=== PATIENT | male | born 1985 | race Caucasian/White ===

== ENCOUNTER 2016-06-30 08:43 | Emergency (ER) | payer MEDICAID ==
[2016-06-30 08:49] VITALS: O2SAT 96
--- NOTE | 2016-06-30 08:57 | EDPHY ---
H & P Time Seen by Provider: 06/30/16 08:51 HPI/ROS: CHIEF COMPLAINT: Right-sided pain HISTORY OF PRESENT ILLNESS: Patient is a history of end-stage liver disease and has been sober from alcohol for more than the last 6 months. 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 Today he was waiting for the bus. He noted that his right-sided abdominal pain has been escalating over the past few days. He said that he coughed and suddenly felt like "something popped" and pain started increasing to a 10/10 severity. It is located under his ribcage on the right side. Does not radiate. Not associated with vomiting or diarrhea. REVIEW OF SYSTEMS: Eye: no change in vision ENT: no sore throat Cardiac: no chest pain or syncope Pulmonary: HPI Abdomen: HPI Musculoskeletal: no back pain Skin: no rash Neuro: no headache Constitutional: no fever : no urinary symptoms A comprehensive 10 point review of systems is otherwise negative aside from elements mentioned in the history of present illness. PAST MEDICAL HISTORY: History of cirrhosis and end-stage liver disease. Discharge summary dated 12/24/2015 personally reviewed. Includes gallbladder drain during previous admission. Social history: Tobacco smoker, sober since November 17 last year General Appearance: Alert and conversant, cooperative. Eyes: No scleral icterus. ENT, Mouth: Normal mucous membranes. Respiratory: Splinting with breathing. Cardiovascular: Regular rate and rhythm. Gastrointestinal: Abdomen is soft and non tender. No Kee sign. Neurological: Alert and oriented x3. Normally conversant. Face symmetric, normal movement and sensation in all extremities. Skin: Warm and dry, no rashes. Musculoskeletal: No peripheral edema and no joint swelling. Psychiatric: Tearful. Emergency Department course/MDM: Dilaudid 1 mg IV. Chest x-ray and labs to include liver function tests and lipase. 1030: Results discussed, patient playing a video game on his phone, I had to interrupt him to discuss his results. Likely chest wall or musculoskeletal pain from coughing. Patient had some nausea assisted by Zofran IV. Patient requested a refill of his Dilaudid prescription which I declined. Is referred back to his primary care for that. Smoking Status: Current every day smoker Constitutional: Initial Vital Signs Temperature (C) 36.5 C 06/30/16 08:46 Heart Rate 90 06/30/16 08:46 Respiratory Rate 20 06/30/16 08:46 Blood Pressure 134/60 H 06/30/16 08:46 O2 Sat (%) 96 06/30/16 08:46 O2 Delivery Mode Room Air Allergies/Adverse Reactions: peanut Allergy (Severe, Verified 06/30/16 08:45) venom-honey bee [bee venom (honey bee)] Allergy (Severe, Verified 06/30/16 08:45 ) acetaminophen Allergy (Verified 06/30/16 08:45) RASH, ITCHY aspirin Allergy (Verified 06/30/16 08:45) naproxen Allergy (Verified 06/30/16 08:45) mustard Allergy (Unknown, Uncoded 03/28/14 00:51) Home Medications: Medication Instructions Recorded NK [No Known Home Meds] 06/30/16 Medical Decision Making - Diagnostics Imaging Results: Imaging Impressions Chest X-Ray 06/30/16 09:03 Impression: No acute pulmonary disease. Differential Diagnosis: Differential considered including but not limited to pneumothorax, intestinal perforation, cholecystitis, hepatitis, pulmonary embolism. - Data Points Laboratory Results: Laboratory Results 06/30/16 09:00 06/30/16 09:00 06/30/16 06/30/16 09:00 09:00 WBC 4.83 10^3/uL 10^3/uL (3.80-9.50) RBC 4.55 10^6/uL 10^6/uL (4.40-6.38) Hgb 14.3 g/dL g/dL (13.7-17.5) Hct 41.7 % % (40.0-51.0) MCV 91.6 fL fL (81.5-99.8) MCH 31.4 pg pg (27.9-34.1) MCHC 34.3 g/dL g/dL (32.4-36.7) RDW 12.9 % % (11.5-15.2) Plt Count 139 10^3/uL L 10^3/uL (150-400) MPV 10.6 fL fL (8.7-11.7) Neut % (Auto) 37.9 % L % (39.3-74.2) Lymph % (Auto) 46.6 % H % (15.0-45.0) [place] % (Auto) 11.6 % % (4.5-13.0) Eos % (Auto) 2.5 % % (0.6-7.6) Baso % (Auto) 1.4 % % (0.3-1.7) Nucleat RBC Rel Count 0.0 % % (0.0-0.2) Absolute Neuts (auto) 1.83 10^3/uL 10^3/uL (1.70-6.50) Absolute Lymphs (auto) 2.25 10^3/uL 10^3/uL (1.00-3.00) Absolute Monos (auto) 0.56 10^3/uL 10^3/uL (0.30-0.80) Absolute Eos (auto) 0.12 10^3/uL 10^3/uL (0.03-0.40) Absolute Basos (auto) 0.07 10^3/uL 10^3/uL (0.02-0.10) Absolute Nucleated RBC 0.00 10^3/uL 10^3/uL (0-0.01) Immature Gran % 0.0 % % (0.0-1.1) Immature Gran # 0.00 10^3/uL 10^3/uL (0.00-0.10) Sodium 142 mEq/L mEq/L (134-144) Potassium 3.8 mEq/L mEq/L (3.5-5.2) Chloride 103 mEq/L mEq/L (97-110) Carbon Dioxide 26 mEq/l mEq/l (22-31) Anion Gap 13 mEq/L mEq/L (8-16) BUN 10 mg/dL mg/dL (7-23) Creatinine 0.8 mg/dL mg/dL (0.7-1.3) Estimated GFR > 60 Glucose 90 mg/dL mg/dL (70-100) Calcium 10.0 mg/dL mg/dL (8.5-10.4) Total Bilirubin 1.2 mg/dL mg/dL (0.1-1.4) Conjugated Bilirubin 0.5 mg/dL mg/dL (0.0-0.5) Unconjugated Bilirubin 0.7 mg/dL mg/dL (0.0-1.1) AST 50 IU/L IU/L (17-59) ALT 48 IU/L IU/L (21-72) Alkaline Phosphatase 117 IU/L IU/L (38-126) Total Protein 8.5 g/dL H g/dL (6.3-8.2) Albumin 5.0 g/dL g/dL (3.5-5.0) Lipase 61.0 IU/L IU/L (23-300) Medications Given: Discontinued Medications Hydromorphone HCl (Dilaudid) 1 mg IVP EDNOW ONE Stop: 06/30/16 09:04 Last Admin: 06/30/16 09:05 Dose: 1 mg Hydromorphone HCl (Dilaudid) 1 mg IVP EDNOW ONE Stop: 06/30/16 09:37 Last Admin: 06/30/16 09:49 Dose: 1 mg Ondansetron HCl (Zofran) 4 mg IVP EDNOW ONE Stop: 06/30/16 10:41 Last Admin: 06/30/16 10:45 Dose: Not Given Ondansetron HCl (Zofran) 4 mg IVP EDNOW ONE Stop: 06/30/16 10:42 Last Admin: 06/30/16 10:45 Dose: 4 mg Departure - Departure Disposition: Home, Routine, Self-Care Clinical Impression: Right-sided chest pain Condition: Good Instructions: Chest Wall Pain (ED) Referrals: Luanne Farmer PAC [Primary Care Provider] - As per Instructions
[2016-06-30] MEDS ORDERED: HYDROmorphONE/DILAUDID 1 MG/ML SYR IVP ONE ×2 (09:03→09:36)
[2016-06-30 09:10] LABS: ADD DIFF? NO; ADD MORPH? NO; ADD SCAN? NO; ATYPICAL LYMPHOCYTE FLAG 50 (0-99); FRAGMENT RBC FLAG 0 (0-99); HEMATOCRIT 41.7 % (40.0-51.0); HEMOGLOBIN 14.3 g/dL (13.7-17.5); LEFT SHIFT FLG 0 (0-99); LIPEMIA HEMOLYSIS FLAG 90 (0-99); MEAN CELL HEMOGLOBIN 31.4 pg (27.9-34.1); MEAN CELL HEMOGLOBIN CONCENTR. 34.3 g/dL (32.4-36.7); MEAN CELL VOLUME 91.6 fL (81.5-99.8); MEAN PLATELET VOLUME 10.6 fL (8.7-11.7); PLATELET CLUMPS FLAG 0 (0-99); PLATELET COUNT 139 10^3/uL (150-400); RED BLOOD CELL COUNT 4.55 10^6/uL (4.40-6.38); RED CELL DISTRIBUTION WIDTH 12.9 % (11.5-15.2)
[2016-06-30 09:29] LABS: ALANINE AMINOTRANSFERASE 48 IU/L (21-72); ALKALINE PHOSPHATASE 117 IU/L (38-126); ANION GAP 13 mEq/L (8-16); ASPARTATE AMINOTRANSFERASE 50 IU/L (17-59); BILIRUBIN,TOTAL 1.2 mg/dL (0.1-1.4); BILIRUBIN-CONJUGATED 0.5 mg/dL (0.0-0.5); BILIRUBIN-UNCONJUGATED 0.7 mg/dL (0.0-1.1); CARBON DIOXIDE 26 mEq/l (22-31); CHLORIDE 103 mEq/L (97-110); CREATININE 0.8 mg/dL (0.7-1.3); GLOMERULAR FILTRATION RATE > 60; GLUCOSE 90 mg/dL (70-100); POTASSIUM 3.8 mEq/L (3.5-5.2); SODIUM 142 mEq/L (134-144); TOTAL PROTEIN 8.5 g/dL (6.3-8.2)
[2016-06-30 10:40] VITALS: BP 108/69; PULSE 78; RESP 18; TEMP 98.2
[2016-06-30] MEDS ORDERED: ONDANSETRON 4 MG/2 ML VIAL IVP ONE ×2 (10:40→10:41)
== END 2016-06-30 11:28 | disposition home or self-care (01) ==
DX: R07.9 Chest pain, unspecified (principal); F17.200 Nicotine dependence, unspecified, uncomplicated; Z91.010 Allergy to peanuts
CPT/HCPCS: 96374; J1170; J2405

== ENCOUNTER 2016-07-29 05:51 | Day surgery (SDC) | payer MEDICAID ==
[2016-07-29] MEDS ORDERED: LR 1,000 ML IV ONE (06:26)
[2016-07-29] MEDS ORDERED: LIDOCAINE 1% 5 ML SDV ID PRN (06:26)
[2016-07-29] MEDS ORDERED: PROPOFOL/EMULSION 500 MG/50 ML BOTTLE IV ONE ×2 (07:13→07:39)
[2016-07-29] MEDS ORDERED: fentaNYL 100 MCG/2 ML INJ ONE (07:13)
[2016-07-29] MEDS ORDERED: LIDOCAINE 2% 100 MG/5 ML SYR ONE (07:14)
[2016-07-29] MEDS ORDERED: MIDAZOLAM 2 MG/2 ML VIAL ONE (07:15)
--- NOTE | 2016-07-29 08:03 | GPN ---
[f rep st] PROCEDURE NOTE DATE OF PROCEDURE: 07/29/2016 PROCEDURE: Esophagogastroduodenoscopy with biopsy. INDICATION: The patient is a 31-year-old male, who presents for evaluation of right and left upper quadrant abdominal pain as well as screening for esophageal varices. He presents for further evaluation. CONSENT: Risks, benefits, and alternatives of the procedure discussed in great detail with the patient. Risk of infection, bleeding, perforation, and sedation were discussed. All questions answered. Informed consent obtained. MEDICATIONS: Propofol. Please see Anesthesia record for details. ESTIMATED BLOOD LOSS: Insignificant. ESOPHAGOGASTRODUODENOSCOPY EXAMINATION: The Olympus upper endoscope was introduced into the mouth and advanced to the esophagus. The proximal, mid, and distal esophagus were normal in appearance. No esophageal varices noted. The stomach was entered and closely examined, including retroflexed views of angularis, cardia, and fundus. The patient was noted to have a moderate-sized hiatal hernia. Several small diminutive polyps were seen along the greater curvature and biopsies were taken. The mucosa of the antrum and body was erythematous in a patchy distribution and biopsies were taken. The duodenal bulb and second portion of duodenum normal in appearance. IMPRESSION: 1. No esophageal varices visualized. 2. Gastritis, status post biopsy. 3. Gastric polyp, status post biopsy. 4. Hiatal hernia. 5. No obvious cause of pain. Will await biopsy results. The pain may be to be musculoskeletal in origin? RECOMMENDATIONS: 1. Proceed with colonoscopy. 2. Await biopsy results. /[id number]/MODL MTDD
--- NOTE | 2016-07-29 08:32 | GPN ---
[f rep st] PROCEDURE NOTE DATE OF PROCEDURE: 07/29/2016 PROCEDURE: Colonoscopy. INDICATION: The patient is a 31-year-old male who presents for evaluation of hematochezia. CONSENT: Risks, benefits, and alternatives of the procedure were discussed in great detail with the patient. Risks of infection, bleeding, perforation, and sedation were discussed. MEDICATIONS: Propofol. Please see Anesthesia record for details. ESTIMATED BLOOD LOSS: None. COLONOSCOPIC EVALUATION: A rectal exam was performed and internal hemorrhoids were appreciated. The Olympus adult colonoscope was introduced into the rectum and advanced to the cecum where the ileocecal valve and appendiceal orifice were seen. The terminal ileum was intubated and was normal in appearance. The colonic mucosa was carefully examined upon both insertion and withdrawal of the scope. No masses or polyps were seen. Retroflexion was performed and large internal hemorrhoids were. IMPRESSION: 1. Internal hemorrhoids. 2. Normal terminal ilium. 3. No mass or polyp seen. 4. Suspect the cause of his symptoms are hemorrhoidal in nature. RECOMMENDATIONS: 1. Fiber supplementation. 2. No straining during bowel movements. /[id number]/MODL MTDD
== END 2016-07-29 09:00 | disposition home or self-care (01) ==
LOC: FSGY 05:51
PROVIDERS: ATTEND Internal Medicine Gastroenterology
PROC: 0DJD8ZZ Inspection of Lower Intestinal Tract, Via Natural or Artificial Opening Endoscopic (ICD-10-PCS; principal; 2016-07-29 07:15)
PROC: 0DB68ZX Excision of Stomach, Via Natural or Artificial Opening Endoscopic, Diagnostic (ICD-10-PCS; principal; 2016-07-29 07:15)
DX: K64.8 Other hemorrhoids (principal); K44.9 Diaphragmatic hernia without obstruction or gangrene; K31.7 Polyp of stomach and duodenum; K29.70 Gastritis, unspecified, without bleeding
CPT/HCPCS: J2001; J2250; J2704; J3010

== ENCOUNTER 2016-08-19 18:41 | Emergency (ER) | payer MEDICAID ==
[2016-08-19 18:48] VITALS: TEMP 98.2
--- NOTE | 2016-08-19 18:58 | EDPHY ---
H & P Stated Complaint: l sided abd pain HPI/ROS: HPI CHIEF COMPLAINT: Left-sided abdominal pain HISTORY OF PRESENT ILLNESS: This patient very pleasant 31-year-old male significant past medical history for alcohol abuse, daily alcohol use, currently clean for 9 months, liver cirrhosis, alcohol-induced hepatitis, gastritis, recently had endoscopy colonoscopy by Dr. Jones on 07/29. Diagnosis gastritis. Presents emergency room with 24 hours of left upper quadrant abdominal pain with associated nausea. Few episodes of vomiting. Nonbilious nonbloody. No black tarry stools. No diarrhea. No fever. No chest pain or shortness of breath. Denies abdominal trauma. States the pain is 10/10 left upper quadrant sharp stabbing. Nonradiating. Patient tells me initially has chronic abdominal pain takes 10 mg of Dilaudid per day. However he is not taking any Dilaudid recently. Past Medical History: Alcohol-induced gastritis, alcohol-induced hepatitis, alcohol abuse, alcohol-induced cirrhosis, chronic abdominal pain. Past Surgical History: Denies recent surgery Social History: Denies use of alcohol, clean x9 months, smokes tobacco daily marijuana daily. Family History: Noncontributory ROS REVIEW OF SYSTEMS: A comprehensive 10 point review of systems is otherwise negative aside from elements mentioned in the history of present illness. Exam Constitutional appears well nontoxic, triage nursing summary reviewed, vital signs reviewed, awake/alert. Eyes normal conjunctivae and sclera, EOMI, PERRLA. HENT normal inspection, atraumatic, moist mucus membranes, no epistaxis, neck supple/ no meningismus, no raccoon eyes. Respiratory clear to auscultation bilaterally, normal breath sounds, no respiratory distress, no wheezing. Cardiovascular rate normal, regular rhythm, no murmur, no edema, distal pulses normal. Gastrointestinal mild tender palpation left upper quadrant , no guarding, normal bowel sounds, no distension, no pulsatile mass. Genitourinary no CVA tenderness. Musculoskeletal no midline vertebral tenderness, full range of motion, no calf swelling, no tenderness of extremities, no meningismus, good pulses, neurovascularly intact. Skin pink, warm, & dry, no rash, skin atraumatic. Neurologic awake, alert and oriented x 3, AAOx3, moves all 4 extremities equally, motor intact, sensory intact, CN II-XII intact, normal cerebellar, normal vision, normal speech. Psychiatric normal mood/affect. Heme/Lymph/Immune no lymphadenopathy. Differential diagnosis includes but is not limited to and in no particular order :, gastritis, peptic ulcer disease Bowel obstruction, appendicitis, gallbladder disease, diverticulitis, colitis, enteritis, perforated viscus, gastritis, GERD, esophagitis, urinary tract infection, pyelonephritis, kidney stones Medical Decision Making: Plan for this patient IV establishment, IV blood work including abdominal labs, CT abdomen pelvis with IV contrast for acute abdominal pain, check urinalysis. Hydration with IV fluids, IV Protonix GI cocktail. Re-evaluate. Re-evaluation: 1957: Re-examination at this time patient is resting comfortably no acute distress. Abdomen soft nontender. No vomiting. He is going to CT at this time. Received IV fluids IV Protonix and GI cocktail. His blood work has been reviewed and is reassuring. Vital signs are reassuring. CT scan of the abdomen pelvis with IV contrast. The results of the study are this shows no acute inflammatory process. The liver was compared to his old CT and has had shrunken and size, esophageal varices present. Otherwise no acute inflammatory process no free air and free fluid. Bowel loops normal. Nothing to explain left upper quadrant abdominal pain.. The study was read by Dr. June. I viewed the images myself on the PACS system. 2030: I did review this patient's blood work and CT scan with the patient. On re-examination is abdomen is soft nontender. He is not vomiting here. He has normal vital signs. Normal blood work normal CT scan. I explained most likely this is inflammation in the stomach lining as previously seen on his EGD I do recommend he follows up with Gastroenterology. He does understand return emergency room if develops worsening abdominal pain fever vomiting. His CT scan here is reassuring no acute inflammatory process blood work is normal. His vital signs are stable. I do recommend he take Zantac. Refrain from taking ibuprofen he has been taking this recently. It is noted while standing outside the room he was comp, cooperative, resting comfortably in speaking coherently with his significant other in the room. Upon my entry he started screaming in pain and writhing in pain. Once he calmed down I did re- evaluate his abdomen is soft nontender. I do feel comfortable allowing to go home. He has not any vomiting here he has stable vital signs stable blood work stable CT scan. Source: Patient - Personal History Current Tetanus/Diphtheria Vaccine: Yes - Medical/Surgical History Hx Asthma: No Hx Chronic Respiratory Disease: No Hx Diabetes: No Hx Cardiac Disease: No Hx Renal Disease: No Hx Cirrhosis: Yes Hx Alcoholism: Yes Hx HIV/AIDS: No Hx Splenectomy or Spleen Trauma: No Other PMH: depression, anxiety, hepatic encephalopathy, cirrhosis, end stage liver disease - Social History Smoking Status: Current every day smoker Constitutional: Initial Vital Signs Temperature (C) 36.8 C 08/19/16 18:45 Heart Rate 84 08/19/16 18:45 Respiratory Rate 17 08/19/16 18:45 Blood Pressure 105/75 08/19/16 18:45 O2 Sat (%) 96 08/19/16 18:45 O2 Delivery Mode Room Air Allergies/Adverse Reactions: peanut Allergy (Severe, Verified 08/19/16 18:44) venom-honey bee [bee venom (honey bee)] Allergy (Severe, Verified 08/19/16 18:44 ) acetaminophen Allergy (Verified 08/19/16 18:44) RASH, ITCHY aspirin Allergy (Verified 08/19/16 18:44) naproxen Allergy (Verified 08/19/16 18:44) mustard Allergy (Unknown, Uncoded 03/28/14 00:51) Home Medications: Medication Instructions Recorded Ranitidine HCl 150 mg PO DAILY #30 tablet 08/19/16 Medical Decision Making - Data Points Laboratory Results: Laboratory Results 08/19/16 18:45 08/19/16 18:45 08/19/16 08/19/16 08/19/16 20:24 19:42 18:45 WBC RBC Hgb Hct MCV MCH MCHC RDW Plt Count MPV Neut % (Auto) Lymph % (Auto) [place] % (Auto) Eos % (Auto) Baso % (Auto) Nucleat RBC Rel Count Absolute Neuts (auto) Absolute Lymphs (auto) Absolute Monos (auto) Absolute Eos (auto) Absolute Basos (auto) Absolute Nucleated RBC Immature Gran % Immature Gran # PT INR APTT VBG Lactic Acid 0.8 mmol/L mmol/L (0.7-2.1) Sodium 136 mEq/L mEq/L (134-144) Potassium 4.2 mEq/L mEq/L (3.5-5.2) Chloride 105 mEq/L mEq/L (97-110) Carbon Dioxide 22 mEq/l mEq/l (22-31) Anion Gap 9 mEq/L mEq/L (8-16) BUN 8 mg/dL mg/dL (7-23) Creatinine 0.7 mg/dL mg/dL (0.7-1.3) Estimated GFR > 60 Glucose 107 mg/dL H mg/dL (70-100) Calcium 9.6 mg/dL mg/dL (8.5-10.4) Total Bilirubin 0.6 mg/dL mg/dL (0.1-1.4) Conjugated Bilirubin 0.3 mg/dL mg/dL (0.0-0.5) Unconjugated Bilirubin 0.3 mg/dL mg/dL (0.0-1.1) AST 33 IU/L IU/L (17-59) ALT 42 IU/L IU/L (21-72) Alkaline Phosphatase 97 IU/L IU/L (38-126) Total Protein 7.5 g/dL g/dL (6.3-8.2) Albumin 4.5 g/dL g/dL (3.5-5.0) Lipase 118.0 IU/L IU/L (23-300) Urine Color Pending Urine Appearance Pending Urine pH Pending Ur Specific [place] Pending Urine Protein Pending Urine Ketones Pending Urine Blood Pending Urine Nitrate Pending Urine Bilirubin Pending Urine Urobilinogen Pending Ur Leukocyte Esterase Pending Urine Glucose Pending 08/19/16 08/19/16 18:45 18:45 WBC 8.47 10^3/uL 10^3/uL (3.80-9.50) RBC 4.04 10^6/uL L 10^6/uL (4.40-6.38) Hgb 12.6 g/dL L g/dL (13.7-17.5) Hct 36.5 % L % (40.0-51.0) MCV 90.3 fL fL (81.5-99.8) MCH 31.2 pg pg (27.9-34.1) MCHC 34.5 g/dL g/dL (32.4-36.7) RDW 13.6 % % (11.5-15.2) Plt Count 190 10^3/uL 10^3/uL (150-400) MPV 10.9 fL fL (8.7-11.7) Neut % (Auto) 48.3 % % (39.3-74.2) Lymph % (Auto) 38.5 % % (15.0-45.0) [place] % (Auto) 8.7 % % (4.5-13.0) Eos % (Auto) 3.1 % % (0.6-7.6) Baso % (Auto) 1.2 % % (0.3-1.7) Nucleat RBC Rel Count 0.0 % % (0.0-0.2) Absolute Neuts (auto) 4.09 10^3/uL 10^3/uL (1.70-6.50) Absolute Lymphs (auto) 3.26 10^3/uL H 10^3/uL (1.00-3.00) Absolute Monos (auto) 0.74 10^3/uL 10^3/uL (0.30-0.80) Absolute Eos (auto) 0.26 10^3/uL 10^3/uL (0.03-0.40) Absolute Basos (auto) 0.10 10^3/uL 10^3/uL (0.02-0.10) Absolute Nucleated RBC 0.00 10^3/uL 10^3/uL (0-0.01) Immature Gran % 0.2 % % (0.0-1.1) Immature Gran # 0.02 10^3/uL 10^3/uL (0.00-0.10) PT 15.1 SEC H SEC (12.0-15.0) INR 1.19 H (0.83-1.16) APTT 30.2 SEC SEC (23.0-38.0) VBG Lactic Acid Sodium Potassium Chloride Carbon Dioxide Anion Gap BUN Creatinine Estimated GFR Glucose Calcium Total Bilirubin Conjugated Bilirubin Unconjugated Bilirubin AST ALT Alkaline Phosphatase Total Protein Albumin Lipase Urine Color Urine Appearance Urine pH Ur Specific [place] Urine Protein Urine Ketones Urine Blood Urine Nitrate Urine Bilirubin Urine Urobilinogen Ur Leukocyte Esterase Urine Glucose Medications Given: Discontinued Medications Al Hydroxide/Mg Hydroxide (Maalox Susp) 30 ml PO ONCE ONE Stop: 08/19/16 19:07 Last Admin: 08/19/16 19:22 Dose: 30 ml Hyoscyamine Sulfate (Levsin, Hyomax-Sl) 0.25 mg PO ONCE ONE Stop: 08/19/16 19:07 Last Admin: 08/19/16 19:22 Dose: 0.25 mg Sodium Chloride (Ns) 1,000 mls @ 0 mls/hr IV ONCE ONE; Wide Open PRN Reason: Protocol Stop: 08/19/16 19:07 Last Admin: 08/19/16 19:22 Dose: 1,000 mls Pantoprazole Sodium 40 mg/ (Sodium Chloride) 100 mls @ 200 mls/hr IV EDNOW ONE Stop: 08/19/16 19:36 Last Admin: 08/19/16 19:13 Dose: 100 mls Departure - Departure Disposition: Home, Routine, Self-Care Clinical Impression: Abdominal pain Qualifiers: Abdominal location: generalized Qualified Code(s): R10.84 - Generalized abdominal pain Condition: Good Instructions: Acute Abdominal Pain (ED), Gastritis (ED) Additional Instructions: 1. Recommend that you had a bland diet no spicy fatty greasy foods. 2. Follow up with Gastroenterology. 3. Return emergency room if develops worsening abdominal pain fever vomiting. Referrals: Luanne Farmer PAC [Primary Care Provider] - As per Instructions Mac Jones MD [Medical Doctor] - As per Instructions Prescriptions: Ranitidine HCl 150 mg PO DAILY #30 tablet
[2016-08-19] MEDS ORDERED: MAG HYDROX/AL HYDROX/SIMETH 30 ML UDCUP PO ONE (19:06)
[2016-08-19] MEDS ORDERED: HYOSCYAMINE SULFATE 0.125 MG TAB PO ONE (19:06)
[2016-08-19] MEDS ORDERED: NS 1,000 ML IV ONE (19:06)
[2016-08-19] MEDS ORDERED: PANTOPRAZOLE SODIUM 40 MG in NS 100 ML IV ONE (19:07)
[2016-08-19 19:13] LABS: % IMMATURE GRANULYOCYTES 0.2 % (0.0-1.1); ABSOLUTE IMMATURE GRANULOCYTES 0.02 10^3/uL (0.00-0.10); ADD DIFF? NO; ADD MORPH? NO; ADD SCAN? NO; ATYPICAL LYMPHOCYTE FLAG 30 (0-99); FRAGMENT RBC FLAG 0 (0-99); HEMATOCRIT 36.5 % (40.0-51.0); HEMOGLOBIN 12.6 g/dL (13.7-17.5); LEFT SHIFT FLG 0 (0-99); LIPEMIA HEMOLYSIS FLAG 90 (0-99); MEAN CELL HEMOGLOBIN 31.2 pg (27.9-34.1); MEAN CELL HEMOGLOBIN CONCENTR. 34.5 g/dL (32.4-36.7); MEAN CELL VOLUME 90.3 fL (81.5-99.8); MEAN PLATELET VOLUME 10.9 fL (8.7-11.7); PLATELET CLUMPS FLAG 10 (0-99); PLATELET COUNT 190 10^3/uL (150-400); RED BLOOD CELL COUNT 4.04 10^6/uL (4.40-6.38); RED CELL DISTRIBUTION WIDTH 13.6 % (11.5-15.2)
[2016-08-19 19:27] LABS: APTT 30.2 SEC (23.0-38.0); INR 1.19 (0.83-1.16); PROTIME(PATIENT) 15.1 SEC (12.0-15.0)
[2016-08-19 19:28] LABS: ALANINE AMINOTRANSFERASE 42 IU/L (21-72); ALBUMIN 4.5 g/dL (3.5-5.0); ALKALINE PHOSPHATASE 97 IU/L (38-126); ANION GAP 9 mEq/L (8-16); ASPARTATE AMINOTRANSFERASE 33 IU/L (17-59); BILIRUBIN,TOTAL 0.6 mg/dL (0.1-1.4); BILIRUBIN-CONJUGATED 0.3 mg/dL (0.0-0.5); BILIRUBIN-UNCONJUGATED 0.3 mg/dL (0.0-1.1); CALCIUM 9.6 mg/dL (8.5-10.4); CARBON DIOXIDE 22 mEq/l (22-31); CHLORIDE 105 mEq/L (97-110); CREATININE 0.7 mg/dL (0.7-1.3); GLOMERULAR FILTRATION RATE > 60; GLUCOSE 107 mg/dL (70-100); POTASSIUM 4.2 mEq/L (3.5-5.2); SODIUM 136 mEq/L (134-144); TOTAL PROTEIN 7.5 g/dL (6.3-8.2)
[2016-08-19] MEDS ORDERED: IOPAMIDOL (ISOVUE-300) 100 ML BTL ONE (19:48)
[2016-08-19 20:43] VITALS: BP 118/100; PULSE 74; RESP 18; O2SAT 94
[2016-08-19 20:43] LABS: COLOR YELLOW; LEUKOCYTE ESTERASE,URINE NEGATIVE (NEGATIVE); NITRITE,URINE NEGATIVE (NEGATIVE)
== END 2016-08-19 20:45 | disposition home or self-care (01) ==
DX: R10.84 Generalized abdominal pain (principal); R11.0 Nausea; F17.200 Nicotine dependence, unspecified, uncomplicated; Z91.010 Allergy to peanuts
CPT/HCPCS: 96365; Q9967

== ENCOUNTER → 2016-08-31 | Outpatient (CLI) | payer MEDICAID | LOC: FIMAGING 11:15 | PROVIDERS: ATTEND Internal Medicine | PROC: CP1Z1ZZ Planar Nuclear Medicine Imaging of Musculoskeletal System, All using Technetium 99m (Tc-99m) (ICD-10-PCS; principal; 2016-08-31) | DX: R10.12 Left upper quadrant pain (principal) | CPT/HCPCS: 78306; A9503 ==

== ENCOUNTER → 2016-09-02 | Outpatient (CLI) | payer MEDICAID | LOC: FIMAGING 09:08 | PROVIDERS: ATTEND Internal Medicine | DX: K21.9 Gastro-esophageal reflux disease without esophagitis (principal); K87 Disorders of gallbladder, biliary tract and pancreas in diseases classified elsewhere | CPT/HCPCS: 78227; A9537 ==

== ENCOUNTER 2017-09-06 12:25 | Day surgery (SDC) | payer MEDICAID ==
[2017-09-06] MEDS ORDERED: LR 1,000 ML IV ONE (12:37)
[2017-09-06 13:40] LABS: PLATELET COUNT 169 10^3/uL (150-400)
[2017-09-06] MEDS ORDERED: MIDAZOLAM 2 MG/2 ML VIAL IVP ONE (13:47)
--- NOTE | 2017-09-06 13:50 | PDANEPAE ---
ANE History of Present Illness 32 year old with hx of polyps. ANE Past Medical History - Cardiovascular History Hx Hypertension: No Hx Arrhythmias: No Hx Chest Pain: No Hx Coronary Artery / Peripheral Vascular Disease: No Hx CHF / Valvular Disease: No Hx Palpitations: No - Pulmonary History Hx COPD: No Hx Asthma/Reactive Airway Disease: Yes Hx Recent Upper Respiratory Infection: No Hx Oxygen in Use at Home: No Hx Sleep Apnea: No Sleep Apnea Screening Result - Last Documented: Negative Pulmonary History Comment: hx childhood asthma - Neurologic History Hx Cerebrovascular Accident: No Hx Seizures: No Hx Dementia: No - Endocrine History Hx Diabetes: No - Renal History Hx Renal Disorders: No - Liver History Hx Hepatic Disorders: Yes Hepatic History Comment: cirrohsis - Neurological & Psychiatric Hx Hx Neurological and Psychiatric Disorders: No - Cancer History Hx Cancer: No - Congenital Disorder History Hx Congenital Disorders: No - GI History Hx Gastrointestinal Disorders: Yes Gastrointestinal History Comment: alcoholic hepatitis, cirrhosis. abdominal pain - Other Health History Other Health History: anemia - Chronic Pain History Chronic Pain: No - Surgical History Prior Surgeries: inguinal hernia repair age 5. endoscopies ANE Review of Systems Review of systems is: negative Review of Systems: - Exercise capacity METS (RN): 5 METS ANE Patient History - Allergies Allergies/Adverse Reactions: peanut Allergy (Severe, Verified 08/19/16 18:44) venom-honey bee [bee venom (honey bee)] Allergy (Severe, Verified 08/19/16 18:44 ) acetaminophen Allergy (Verified 08/19/16 18:44) RASH, ITCHY aspirin Allergy (Verified 08/19/16 18:44) naproxen Allergy (Verified 08/19/16 18:44) mustard Allergy (Unknown, Uncoded 03/28/14 00:51) - Home Medications Home Medications: Ranitidine HCl 08/27/17 [Last Taken Unknown] Ibuprofen 09/06/17 [Last Taken 09/05/17 20:00] - NPO status NPO Since - Liquids (Date): 09/06/17 NPO Since - Liquids (Time): 04:00 NPO Since - Solids (Date): 09/05/17 NPO Since - Solids (Time): 11:59 - Smoking Hx Smoking Status: Heavy smoker - Alcohol Use Alcohol Use: None - Family Anes Hx Family Anes Hx: none Family Hx Anesthesia Complications: none ANE Labs/Vital Signs - Labs Result Diagrams: 09/06/17 13:10 - Vital Signs Blood Pressure: 114/70 Heart Rate: 88 Respiratory Rate: 15 O2 Sat (%): 95 Height: 185.42 cm Weight: 65.771 kg ANE Physical Exam - Airway Neck exam: FROM Mallampati Score: Class 1 Mouth exam: normal dental/mouth exam - Pulmonary Pulmonary: no respiratory distress - Cardiovascular Cardiovascular: regular rate and rhythym - ASA Status ASA Status: II ANE Anesthesia Plan Anesthesia Plan: MAC
--- NOTE | 2017-09-06 14:12 | PDGENHP ---
History & Physical Chief Complaint: RUQ abd pain History of Present Illness: 32 year old male with a hx of cirrhosis presents for evaluation of RUQ abdominal pain. Pertinent Past, Social, Family History: PMHx: ETOH cirrhosis. SurgHx: jaw bone repair, hernia repair Relevant Physical Exam: HEENT: anicteric. Cv: RRR +s1s2. Lungs: CTAB Now/r/r. Abd: soft, nt, + BS Cardiorespiratory Assessment: ASA 3
[2017-09-06] MEDS ORDERED: NS 500 ML IV SCH (14:15)
[2017-09-06] MEDS ORDERED: PROPOFOL/EMULSION 500 MG/50 ML BOTTLE IV ONE (14:23)
[2017-09-06] MEDS ORDERED: fentaNYL 100 MCG/2 ML INJ ONE (14:23)
--- NOTE | 2017-09-06 15:22 | GIREPORT ---
[facility] - Endoscopy Department Patient Name: Low Boss Procedure Date: 09/06/2017 2:08 PM Patient Type: Outpatient Attending MD/ ER Physician: Mac Jones MD Procedure: Upper GI endoscopy Indications: Abdominal pain in the right upper quadrant, Abdominal pain in the left upper quadrant Patient Profile: 32 year old male with a history of cirrhosis presents for evaluation of RUQ/LUQ abdominal pain. Providers: Mac Jones MD Medicines: Monitored Anesthesia Care Complications: No immediate complications. Estimated blood loss: Minimal. Description of Procedure: After obtaining informed consent, the endoscope was passed under direct vision. Throughout the procedure, the patient's blood pressure, pulse, and oxygen saturations were monitored continuously. The Endoscope was intro duced through the mouth, and advanced to the second part of duodenum. The [facility] er GI endoscopy was accomplished without difficulty. The patient tolerated th e procedure well. Findings: The examined esophagus was normal. A hiatal hernia was present. Patchy mildly erythematous mucosa was found in the gastric body and in the gastric antrum. Biopsies were taken with a cold forceps for histology. The examined duodenum was normal. Estimated Blood Loss: Estimated blood loss was minimal. Post Op Diagnosis: - Normal esophagus. - Hiatal hernia. - Erythematous mucosa in the gastric body and antrum. Biopsied. - Normal examined duodenum. Recommendation: - Discharge patient to home (with escort). - Resume previous diet. - Continue present medications. - Await pathology results. - Return to GI office in 6 weeks. - Repeat EGD in 1 year for surveillance of esophageal varices. - Thank you for allowing me to participate in the care of your patient. Attending Participation: I personally performed the entire procedure. Mac Jones MD Mac Jones MD 09/06/2017 3:14:55 PM This report has been signed electronicallyMac Jones MD Number of Addenda: 0 Note Initiated On: 09/06/2017 2:08 PM [email or web address]
[2017-09-06 15:23] VITALS: BP 119/69
[2017-09-06] MEDS ORDERED: ONDANSETRON 4 MG/2 ML VIAL IVP PRN (16:10)
[2017-09-06] MEDS ORDERED: NALOXONE HCL 0.4 MG/ML INJ IVP PRN (16:10)
[2017-09-06] MEDS ORDERED: PROMETHAZINE HCL 25 MG/ML INJ IVP PRN (16:10)
--- NOTE | 2017-09-06 16:10 | POSTANESTH ---
Post Anesthetic Evaluation Cardiovascular Status: Normal, Stable Respiratory Status: Normal, Stable, Requires Airway Assist Pain Control: Adequate, Prn Tx Ordered Nausea/Vomiting Control: Adequate, Prn Tx Ordered Complications Possibly Related to Anesthesia: None Noted
== END 2017-09-06 15:37 | disposition home or self-care (01) ==
LOC: FSGY 12:25
PROVIDERS: ATTEND Internal Medicine Gastroenterology
PROC: 0DB48ZX Excision of Esophagogastric Junction, Via Natural or Artificial Opening Endoscopic, Diagnostic (ICD-10-PCS; principal; 2017-09-06 14:30)
DX: K29.50 Unspecified chronic gastritis without bleeding (principal); K44.9 Diaphragmatic hernia without obstruction or gangrene; K74.60 Unspecified cirrhosis of liver
CPT/HCPCS: J2250; J2704; J3010

== ENCOUNTER 2018-02-28 07:50 | Emergency (ER) | payer MEDICAID ==
[2018-02-28 07:58] VITALS: BP 123/69
--- NOTE | 2018-02-28 08:07 | EDPHY ---
H & P Time Seen by Provider: 02/28/18 08:06 HPI/ROS: CHIEF COMPLAINT: Toothache HISTORY OF PRESENT ILLNESS: Patient has had hardware in his mouth for the last 8 years after breaking his jaw, has not been able to afford getting it removed. He is broken a tooth several years ago but over the last 24 hr has pretty severe pain in the left lower jaw. Located over the area of the fractured tooth which is the 18; 2nd most posterior molar. Pain severe not better with ibuprofen. REVIEW OF SYSTEMS: No fever or chills, no difficulty breathing or swallowing PAST MEDICAL HISTORY: Depression and anxiety, cirrhosis with alcoholic liver disease Social history: Sober for 2 years General Appearance: Alert and conversant, cooperative. Alert and afebrile. No trismus. Patient has broken 18. Tooth with tenderness to palpation and some gum swelling around it. Patient has dental wires in place on upper and lower teeth. No external facial redness or swelling. Normal voice. No respiratory distress. Emergency Department course/MDM: PDMP search shows last narcotic prescription in September of 2016. Oral amoxicillin, oxycodone 11., dental aid referral. The emergency dental aid number [phone] was called at 8:15 a.m.. 909am: Dr. Ruiz [facility]; will call patient Wednesday to get appointment for followup. Smoking Status: Heavy smoker Constitutional: Initial Vital Signs Temperature (C) 36.6 C 02/28/18 07:54 Heart Rate 88 02/28/18 07:54 Respiratory Rate 20 02/28/18 07:54 Blood Pressure 123/69 H 02/28/18 07:54 O2 Sat (%) 98 02/28/18 07:54 O2 Delivery Mode Room Air Allergies/Adverse Reactions: peanut Allergy (Severe, Verified 08/19/16 18:44) venom-honey bee [bee venom (honey bee)] Allergy (Severe, Verified 08/19/16 18:44 ) acetaminophen Allergy (Verified 08/19/16 18:44) RASH, ITCHY aspirin Allergy (Verified 08/19/16 18:44) naproxen Allergy (Verified 08/19/16 18:44) mustard Allergy (Unknown, Uncoded 03/28/14 00:51) Home Medications: Medication Instructions Recorded Ranitidine HCl 08/27/17 Amoxicillin Trihydrate 500 mg PO Q8 #30 cap 02/28/18 [Amoxicillin 500mg capsule] oxyCODONE HCL [Oxycodone HCl] 5 mg PO Q6 PRN #11 tablet 02/28/18 MDM/Departure - Depart Disposition: Home, Routine, Self-Care Clinical Impression: Pain, dental Condition: Fair Instructions: Toothache (ED) Additional Instructions: Ibuprofen 600 mg by mouth every 8 hr for the next 3-4 days. Call dental aid for dental follow-up, or you can see Dr. Martínez in [place]. Return for fever or trouble swallowing or breathing or increasing pain or swelling in the jaw. Prescriptions: Amoxicillin Trihydrate [Amoxicillin 500mg capsule] 500 mg PO Q8 #30 cap oxyCODONE HCL [Oxycodone HCl] 5 mg PO Q6 PRN #11 tablet PRN Reason: tooth pain Referrals: Dental Aid [Outside] - As per Instructions
== END 2018-02-28 08:36 | disposition home or self-care (01) ==
DX: K08.89 Other specified disorders of teeth and supporting structures (principal); Z97.2 Presence of dental prosthetic device (complete) (partial)